=== PATIENT | female | born 1950 | race Caucasian/White ===

== ENCOUNTER 2017-01-31 08:54 | Inpatient (IN) ==
[2017-01-31] MEDS ORDERED: Ondansetron 4 MG/2 ML VIAL IVP ONE (09:28)
[2017-01-31] MEDS ORDERED: *HR* Morphine 2 MG/ML SYRINGE IVP ONE (09:28)
--- NOTE | 2017-01-31 09:31 | Emergency Department Note ---
Disposition Clinical Impression: Hyponatremia Pelvic fracture Qualifiers: Encounter type: initial encounter Pelvic bone location: multiple parts Fracture type: closed Fracture alignment: with stable disruption of pelvic ring Qualified Code(s): S32.810A - Multiple fractures of pelvis with stable disruption of pelvic ring, initial encounter for closed fracture Abrasion of elbow, left Qualifiers: Encounter type: initial encounter Qualified Code(s): S50.312A - Abrasion of left elbow, initial encounter Disposition: Admitted As Inpatient Condition: Good Time of Disposition: 10:26 Lower Extremity Injury HPI - General Chief Complaint: ED Extremity Injury, Lower Stated Complaint: fall, pain to left hip Time Seen by Provider: 01/31/17 09:05 Source: patient Mode of arrival: EMS Limitations: no limitations Nursing Notes Reviewed: Yes Vital Signs Reviewed: Yes - History of Present Illness HPI Narrative: 66-year-old white female presents via life support with left hip pain and unable to weight-bear. She was getting out of her car around midnight last night, she was stepping around a bolder on the side of her driveway and stepped in a hole. She fell down on her left side. She complains of left hip pain. She has an abrasion to her left elbow. She denies any other injuries or fall. Her brother helped her into the house, she was unable to weight-bear. She laid in a chair all night long. She states she was unable to sleep due to the pain. She called EMS this morning. A neighbor put a dressing on her elbow. She denies head injury. Pt Subjective Complaint: hip injury Injury location: Left hip Onset (ago): hour(s) (9) Mechanism of Injury: blunt Context: fall (Fall) Place: home Pain Severity: severe Improves with: immobilization Worsens with: movement, palpation Associated symptoms: Reports: unable to bear weight Treatments prior to arrival: other (Bandage to left elbow) - Related Data Home Medications Medication Instructions Recorded Confirmed Albuterol Sulfate [Proair Hfa] 2 puff IH QID PRN 12/07/15 01/31/17 Alendronate Sodium [Fosamax] 70 mg PO QWEEK 12/07/15 01/31/17 Baclofen [Lioresal] 10 mg PO TID 12/07/15 01/31/17 Calcium Carbonate/Vitamin D2 1 each PO BID 12/07/15 01/31/17 [Oyster Shell Calcium-Vit D Tab] Famotidine [Acid Control] 20 mg PO BID 12/07/15 01/31/17 Ferrous Sulfate 325 mg PO BID 12/07/15 01/31/17 Fluticasone/Salmeterol [Advair 1 each IH BID 12/07/15 01/31/17 250-50 Diskus] Hydrochlorothiazide [Microzide] 12.5 mg PO DAILY 12/07/15 01/31/17 Lisinopril [Zestril] 20 mg PO DAILY 12/07/15 01/31/17 Montelukast [Singulair] 10 mg PO DAILY 12/07/15 01/31/17 TraMADol [Ultram] 50 mg PO TID 12/07/15 01/31/17 Allergies Allergy/AdvReac Type Severity Reaction Status Date / Time No Known Allergies Allergy Verified 01/31/17 08:55 All systems ED: reviewed and negative except as stated. Constitutional: Denies: fever, chills Eyes: Denies: vision change Cardiovascular: Denies: chest pain Respiratory: Reports: dyspnea (Chronically short of breath, no more so than usual. She wears oxygen at night.). Denies: cough Gastrointestinal: Denies: abdominal pain, nausea, vomiting Genitourinary: Denies: urgency, dysuria, frequency Musculoskeletal: Reports: as per HPI (Left hip pain). Denies: back pain, neck pain Integumentary: Reports: as per HPI (Left elbow abrasion), abrasion Neurological: Denies: headache, weakness, numbness, paresthesias Past Medical History - Past Medical History Medical history: Reports: arthritis, COPD, hypertension, osteoporosis, other ( Previous Pelvic Fracture, Ulcer, Colon Cancer) Surgical history: Reports: cancer surgery (Colon) Psychiatric history: Reports: no psych history - Social History Smoking Status: Former smoker Smokeless Tobacco Status: No Alcohol use: Reports: occasionally Drug use: Reports: none Physical Exam - General Limitations: no limitations General appearance: alert, in no apparent distress - Head Head exam: atraumatic, normocephalic - Eye Eye exam: Present: PERRL, EOMI. Absent: scleral icterus, conjunctival injection - ENT ENT exam: normal oropharynx, mucous membranes moist, TM's normal bilaterally - Neck Neck exam: Present: normal inspection, full ROM, trachea midline. Absent: tenderness, lymphadenopathy - Chest Chest inspection: Present: normal inspection, symmetric chest wall rise. Absent : tenderness - Respiratory Respiratory exam: Present: wheezes (Mild bilateral expiratory). Absent: respiratory distress, accessory muscle use, prolonged expiratory phase - Cardiovascular Cardiovascular exam: Present: regular rate, normal rhythm, normal heart sounds - Abdominal Exam Abdominal exam: Present: soft, Non-Tender, normal bowel sounds. Absent: organomegaly, mass - Extremities Exam Extremities exam: Present: tenderness (Tender over the left lateral posterior hip and buttock area. There is no shortening, or rotation of the left lower extremity. She has significant pain on attempts at range of motion of the left hip. She has some pain in the left hip area on rocking of the pelvis. She has intact symmetrical dorsalis pedis and posterior tibial pulses.), normal capillary refill - Back Exam Back exam: Absent: tenderness - Neurological Exam Neurological exam: Present: alert, oriented X3, CN II-XII intact. Absent: normal gait (Unable to weight-bear.), motor sensory deficit - Psychiatric Psychiatric exam: Present: normal affect, normal mood - Skin Skin exam: Present: warm, dry, other (1.5 x 4 cm superficial abrasion over the posterior left elbow. No bony tenderness. Full range of motion of the left elbow without pain.) Course - Reevaluation(s) Reevaluation #1: X-ray results and laboratory results discussed with patient. Treatment plan discussed. She would prefer to stay here for treatment. Dr. Johnson has been paged. Time: 10:15 Reevaluation #2: Dr. Johnson accepts the patient for admission. Time: 10:25 Reevaluation #3: Admitting orders written. Time: 10:35 Vital Signs Temperature 99 F 01/31/17 09:25 Pulse Rate 103 01/31/17 09:25 Respiratory Rate 18 01/31/17 09:25 Blood Pressure 160/93 01/31/17 09:25 O2 Sat by Pulse Oximetry 96 01/31/17 09:25 Temperature 99 F 01/31/17 09:25 Pulse Rate 102 01/31/17 10:30 Respiratory Rate 18 01/31/17 10:30 Blood Pressure 114/61 01/31/17 10:30 O2 Sat by Pulse Oximetry 90 01/31/17 10:30 Oxygen Delivery Oxygen Delivery Room Air Extremity Injury, Lower - MDM Narrative Medical decision making narrative: Differential includes but is not limited to hip fracture, pelvic fracture, hip dislocation, hip strain, inguinal strain, hip and/or buttock contusion. Her x-ray showed ischial and pubic rami fractures that were nondisplaced. I did do a CT of her hip as well, her pain was primarily lateral and posterior hip , not inguinal. I wanted to make sure there was not an associated nondisplaced hip fracture. She was given morphine and Zofran for pain control in the emergency department. Her pain was controlled. Her laboratory results also showed a mild hyponatremia. This is likely related to the hydrochlorothiazide that she currently takes. I did hold the hydrochlorothiazide. I started her on some IV normal saline. After discussing the patient with Dr. Johnson the patient will be admitted for pain control and PT evaluation and treatment. - Lab Data Lab results reviewed: Yes I reviewed the patient's lab results. Result diagrams: 01/31/17 09:41 01/31/17 09:41 Lab Results 01/31/17 01/31/17 01/31/17 Range/Units 09:41 09:41 09:41 WBC 8.5 (4.3-11.1) K/mcL RBC 3.59 L (3.82-4.97) M/mcL Hgb 12.5 (11.5-15.4) g/dL Hct 34.7 L (35.3-44.9) % MCV 96.7 (83.0-100.0) fL MCH 34.8 H (28.0-33.3) pg MCHC 36.0 H (31.6-35.5) g/dL RDW 13.0 (11.5-14.5) % Plt Count 526 H (140-400) K/mcL MPV 8.2 L (9.4-12.4) fL Immature Gran % 0.9 (0-4) % Seg Neutrophils % 67.1 % Lymphocytes % 19.2 % Monocytes % 10.9 % Eosinophils % 1.4 % Basophils % 0.5 % Neutrophils # 5.7 (1.6-8.9) K/mcL Lymphocytes # 1.6 (0.6-4.6) K/mcL Monocytes # 0.9 (0.0-1.3) K/mcL Eosinophils # 0.1 (0.0-0.6) K/mcL Basophils # 0.0 (0.0-0.2) K/mcL PT 11.6 (9.4-12.1) Seconds INR 1.1 Sodium 129 L (136-145) mEq/L Potassium 4.5 (3.5-4.5) mEq/L Chloride 93 L (98-109) mEq/L Carbon Dioxide 23 (19-29) mEq/L BUN 6 L (7-20) mg/dL Creatinine 0.66 (0.57-1.11) mg/dL Est GFR ( Amer) > 60 (> 60) Est GFR (Non-Af Amer) > 60 (> 60) BUN/Creatinine Ratio 9 (6-26) Glucose 102 H (70-99) mg/dL Calculated Osmolality 266 L (280-300) Calcium 8.6 (8.6-10.8) mg/dL - Radiology Data Radiology results reviewed: Yes I reviewed the patient's radiology results. ITS Impressions Hip X-Ray 01/31/17 08:57 IMPRESSION: Acute left superior and inferior pubic rami fractures. D/ / Abilio Pena MD / Abilio Pena MD Interpreting Provider: Abilio Pena MD Hip CT 01/31/17 09:13 IMPRESSION: Comminuted fractures of the superior and inferior left pubic rami. There is a small amount of soft tissue attenuation within the left pelvic retroperitoneum compatible with hemorrhage products. D/ / Alem Campos Cha, MD / Alem Campos Cha, MD Interpreting Provider: Alem Campos Cha, MD
[2017-01-31 09:48] LABS: Basophils % 0.5 %; Eosinophils # 0.1 K/mcL (0.0-0.6); Eosinophils % 1.4 %; Hematocrit 34.7 % (35.3-44.9); Hemoglobin 12.5 g/dL (11.5-15.4); Immature Granulocytes % 0.9 % (0-4); Lymphocytes # 1.6 K/mcL (0.6-4.6); Lymphocytes % 19.2 %; Mean Corpuscular Hemoglobin 34.8 pg (28.0-33.3); Mean Corpuscular Volume 96.7 fL (83.0-100.0); Mean Platelet Volume 8.2 fL (9.4-12.4); Monocytes # 0.9 K/mcL (0.0-1.3); Monocytes % 10.9 %; Neutrophils # 5.7 K/mcL (1.6-8.9); Platelet Count 526 K/mcL (140-400); Red Blood Count 3.59 M/mcL (3.82-4.97); Segmented Neutrophils % 67.1 %
[2017-01-31 09:55] LABS: INR 1.1; Prothrombin Time 11.6 Seconds (9.4-12.1)
[2017-01-31 10:03] LABS: BUN/Creatinine Ratio 9 (6-26); Blood Urea Nitrogen 6 mg/dL (7-20); Calcium 8.6 mg/dL (8.6-10.8); Carbon Dioxide 23 mEq/L (19-29); Chloride 93 mEq/L (98-109); Glucose 102 mg/dL (70-99); Osmolality,Calculated 266 (280-300); Potassium 4.5 mEq/L (3.5-4.5); Sodium 129 mEq/L (136-145); eGFR For African Americans > 60 (> 60); eGFR For Non-African Americans > 60 (> 60)
[2017-01-31] MEDS ORDERED: NON-FORMULARY MEDICATION 1 EACH EACH (Alendronate Sodium [Fosamax] 70 MG) PO SCH (10:43)
[2017-01-31] MEDS ORDERED: Naloxone 0.4 MG/ML INJ IVP PRN (10:43)
[2017-01-31] MEDS ORDERED: *HR* Morphine 2 MG/ML SYRINGE IVP PRN (10:43)
[2017-01-31] MEDS: 0.9 % Sodium Chloride 1,000 ML IVC SCH ×2 (11:49→22:15)
[2017-01-31] MEDS ORDERED: *HR* OxyCODONE ER (12 HR) 10 MG TABLET PO STA (12:10)
--- NOTE | 2017-01-31 16:26 | Internal Med History&Physical ---
Date of Encounter: 01/31/17 Time of Encounter: 16:00 Assessment and Plan (1) Pelvic fracture Current visit: Yes Status: Acute She has been admitted to [facility]. Physical therapy and occupational therapy evaluations will be done. Vitamin D level be checked in a.m. Analgesics will be given on a scheduled and prn basis. Qualifiers: Encounter type: initial encounter Pelvic bone location: multiple parts Fracture type: closed Fracture alignment: with stable disruption of pelvic ring Qualified Code(s): S32.810A - Multiple fractures of pelvis with stable disruption of pelvic ring, initial encounter for closed fracture (2) Hypertension Current visit: Yes Status: Chronic Continue Zestril and hydrochlorothiazide. We will monitor blood pressures. Qualifiers: Hypertension type: essential hypertension Qualified Code(s): I10 - Essential (primary) hypertension (3) COPD (chronic obstructive pulmonary disease) Current visit: No Status: Acute Continue Symbicort, Singulair, and nebulizers as needed. Qualifiers: COPD type: COPD with acute exacerbation Qualified Code(s): J44.1 - Chronic obstructive pulmonary disease with (acute) exacerbation (4) Hyponatremia Current visit: No Status: Acute Suspect due to hydrochlorothiazide use. Will hold HCTZ and monitor labs. Internal Medicine - H&P: HPI Chief complaint: Fall with pelvic fracture Admitted From: Home Plans for Post Hospital Care: Home History of present illness: Ms. Ruvalcaba is a 66 year old female who states she had a fall walking from her car to her house last evening. She was unable to get off the ground by herself but was assisted by family members into the house. She had significant left sided hip/pelvis pain. She did not sleep through the night because of the pain. She came to emergency room this morning and was found to have left inferior and superior pelvic ramus fractures. She was admitted to [facility] for ongoing care needs. She states her fall was due to tripping over a large rock and her left foot landing in a hole. She denies loss of consciousness or head injury. She sustained abrasion to her left elbow. She had a right pelvic fracture in 2003 after a fall. Her musculoskeletal history is pertinent otherwise for DJD and osteoporosis. She denies other bone joint or muscle disorders. Past Med Surg Social Fam HX - Past Medical History Medical history: arthritis, COPD, hypertension, osteoporosis, other Psychiatric history: no psych history - Past Surgical History Surgical History: cancer surgery, orthopedic, other - Social History Smoking Status: Current every day smoker Packs per day: less than one Smokeless Tobacco Status: No Alcohol use: occasionally Drug use: none Internal Medicine - H&P: Meds Albuterol Sulfate [Proair Hfa] 2 puff IH QID PRN 12/07/15 [History] Alendronate Sodium [Fosamax] 70 mg PO QWEEK 12/07/15 [History] Baclofen [Lioresal] 10 mg PO TID 12/07/15 [History] Calcium Carbonate/Vitamin D2 [Oyster Shell Calcium-Vit D Tab] 1 each PO BID [History] Famotidine [Acid Control] 20 mg PO BID 12/07/15 [History] Ferrous Sulfate 325 mg PO BID 12/07/15 [History] Fluticasone/Salmeterol [Advair 250-50 Diskus] 1 each IH BID 12/07/15 [History] Hydrochlorothiazide [Microzide] 12.5 mg PO DAILY 12/07/15 [History] Lisinopril [Zestril] 20 mg PO DAILY 12/07/15 [History] Montelukast [Singulair] 10 mg PO DAILY 12/07/15 [History] TraMADol [Ultram] 50 mg PO TID 12/07/15 [History] Allergies No Known Allergies Allergy (Verified 01/31/17 08:55) All Systems PM: A 10-system review of systems was performed and is negative for pertinent findings except as documented above in the HPI. Review of systems: Gen.: Her weight has decreased from 59.058 kg at the November 2015 hospitalization to 56.69 kg at present. Cardiovascular: She has history of hypertension but denies [place] heart failure angina DVT or pulmonary embolus. Respiratory: She smoked from age [age] up to 2 packs per day. She has a diagnosis COPD and requires oxygen at bedtime and when necessary during the daytime. GI: She has GERD but denies disorders of her liver or exocrine pancreas. She had cholecystectomy in the past. She has had colon polyps as well as gastric polyps : She had an adrenal adenoma (?) that was followed for several years without change in size. She denies other kidney or bladder disorders. Neurologic: She denies large distribution strokes or seizures. Endocrine: She denies diabetes thyroid disease or hyperlipidemia Hematology/oncology: She had colon cancer with partial colectomy approximately 2012 which was curative. Denies other internal malignancies or blood disorders Psychiatric: She denies anxiety depression or other mental health issues Musk skeletal: She has DJD and osteoporosis. Denies other bone joint or muscle disorders. - Constitutional Vitals: Temp Pulse Resp BP Pulse Ox 98.5 F 85 14 108/67 95 01/31/17 11:35 01/31/17 11:35 01/31/17 11:35 01/31/17 11:35 01/31/17 11:35 Exam: Gen.: She is a well-developed well-nourished female who appears in significant pain on movement HEENT: Head is atraumatic and normocephalic. Eyes: EOMI. There is no scleral icterus. Mouth: Mucosa is moist. Neck: Supple and nontender. There is no thyromegaly or adenopathy noted. Heart: Regular without murmurs gallops or ectopics. Lungs: No wheezes or crackles are heard. Abdomen: Soft and nontender. No masses or guarding are noted. Extremities: The left arm has Cob[place] and over much of the midportion. There is no cyanosis edema or clubbing noted of her feet. Dorsalis pedis and posttibial pulses are 1-2 over 2 bilaterally. Neurologic: Mental status: She is talkative and a good historian. Cranial nerves: Smile is symmetric. Forehead wrinkles bilaterally. Tongue protrudes midline. EOMI. Motor: There is no pronator drift. Cerebellar: Finger to nose is intact bilaterally. Skin: Warm and dry Internal Med - H&P Results - Labs CBC & Chem 7: 01/31/17 09:41 01/31/17 09:41
[2017-01-31] MEDS: *HR* Morphine 2 MG/ML SYRINGE IVP PRN ×2 (17:21→22:19)
[2017-01-31] MEDS: Baclofen 10 MG TABLET PO SCH ×2 (17:21→22:15)
[2017-01-31] MEDS: *HR* OxyCODONE ER (12 HR) 10 MG TABLET PO SCH (18:40)
[2017-01-31] MEDS: Budesonide/Formoterol 80/4.5 MDI IH SCH (21:30)
[2017-01-31] MEDS: Famotidine 20 MG TABLET PO SCH (22:14)
[2017-01-31] MEDS: CALCIUM CARBONATE PO SCH (22:15)
[2017-01-31] MEDS: VITAMIN D2 PO SCH (22:15)
[2017-01-31] MEDS ORDERED: Nitroglycerin 0.4 MG TAB.SUBL SL ONE (23:55)
[2017-01-31] MEDS: Nitroglycerin 0.4 MG TAB.SUBL SL PRN (23:58)
[2017-02-01] MEDS: Nitroglycerin 0.4 MG TAB.SUBL SL PRN (00:05)
[2017-02-01] MEDS ORDERED: GI Cocktail 40 ML EACH PO ONE (00:16)
[2017-02-01] MEDS: *HR* Morphine 2 MG/ML SYRINGE IVP PRN ×6 (00:29→22:30)
[2017-02-01] MEDS: *HR* OxyCODONE ER (12 HR) 10 MG TABLET PO SCH ×2 (05:15→18:43)
[2017-02-01] MEDS: *HR* Enoxaparin 40 MG/0.4 ML SYRINGE SQ SCH (05:15)
[2017-02-01 06:05] LABS: Basophils # 0.1 K/mcL (0.0-0.2); Basophils % 0.5 %; Eosinophils # 0.1 K/mcL (0.0-0.6); Eosinophils % 0.8 %; Hematocrit 31.3 % (35.3-44.9); Hemoglobin 10.7 g/dL (11.5-15.4); Immature Granulocytes % 0.4 % (0-4); Lymphocytes # 1.7 K/mcL (0.6-4.6); Lymphocytes % 16.7 %; Mean Corpuscular HGB Conc 34.2 g/dL (31.6-35.5); Mean Corpuscular Hemoglobin 34.4 pg (28.0-33.3); Mean Corpuscular Volume 100.6 fL (83.0-100.0); Mean Platelet Volume 8.8 fL (9.4-12.4); Monocytes # 1.4 K/mcL (0.0-1.3); Monocytes % 13.3 %; Platelet Count 482 K/mcL (140-400); Red Blood Count 3.11 M/mcL (3.82-4.97); Red Cell Distribution Width 13.5 % (11.5-14.5); Segmented Neutrophils % 68.3 %
[2017-02-01] MEDS ORDERED: Lisinopril 20 MG TABLET PO SCH (09:00)
[2017-02-01] MEDS: Baclofen 10 MG TABLET PO SCH ×3 (09:57→22:29)
[2017-02-01] MEDS: Famotidine 20 MG TABLET PO SCH ×2 (09:59→22:28)
[2017-02-01] MEDS: CALCIUM CARBONATE PO SCH ×2 (10:00→22:30)
[2017-02-01] MEDS: VITAMIN D2 PO SCH ×2 (10:00→22:30)
[2017-02-01] MEDS: Budesonide/Formoterol 80/4.5 MDI IH SCH ×2 (10:54→21:33)
[2017-02-01] MEDS ORDERED: *HR* Morphine 2 MG/ML SYRINGE IVP ONE (11:35)
--- NOTE | 2017-02-01 12:08 | Internal Med Progress Note ---
Date of Encounter: 02/01/17 Time of Encounter: 12:05 - Assessment and plan (1) Pelvic fracture Current Visit: Yes Status: Acute Assessment and plan: February 01. Continue OxyContin and prn morphine and Ultram. Qualifiers: Encounter type: initial encounter Pelvic bone location: multiple parts Fracture type: closed Fracture alignment: with stable disruption of pelvic ring Qualified Code(s): S32.810A - Multiple fractures of pelvis with stable disruption of pelvic ring, initial encounter for closed fracture (2) Hypertension Current Visit: Yes Status: Chronic Assessment and plan: February 01. Continue Zestril. Remain off HCTZ. Qualifiers: Hypertension type: essential hypertension Qualified Code(s): I10 - Essential (primary) hypertension (3) COPD (chronic obstructive pulmonary disease) Current Visit: No Status: Acute Assessment and plan: February 01. Continue Symbicort, Singulair, and prn albuterol nebulizers. Qualifiers: COPD type: COPD with acute exacerbation Qualified Code(s): J44.1 - Chronic obstructive pulmonary disease with (acute) exacerbation (4) Hyponatremia Current Visit: No Status: Acute Assessment and plan: February 01. Remain off HCTZ. Recheck labs in a.m. (5) Anemia Current Visit: Yes Status: Acute Assessment and plan: February 01. Hemoglobin has decreased to 10.7 from 12.5 yesterday. We will order anemia testing in a.m. Qualifiers: Anemia type: unspecified type Qualified Code(s): D64.9 - Anemia, unspecified (6) Pleural effusion, right Current Visit: Yes Status: Acute Assessment and plan: February 01. Questionable seen on chest x-ray done earlier today. We will order chest CT to further evaluate - Subjective Interval history: She complained of discomfort in her right chest area during the night. She was given nitroglycerin without relief. GI cocktail was also given. She states it is worse on inspiration. She has had it previously when she has had bronchitis. States her pelvic pain has improved with present medication regimen. - Constitutional Vitals: Temp Pulse Resp BP Pulse Ox 98.8 F 95 18 124/63 90 02/01/17 07:33 02/01/17 09:13 02/01/17 10:57 02/01/17 09:13 02/01/17 10:57 Exam: She appears in minimal discomfort at present. Her lungs show some diminished breath sounds in the right base. Heart is regular without murmurs gallops or ectopics. Extremities show no pitting edema. Reviewed her medications and lab results. Internal Medicine: Result - Labs CBC & Chem 7: 02/01/17 04:43 01/31/17 09:41 Labs: Short CBC 02/01/17 Range/Units 04:43 WBC 10.2 (4.3-11.1) K/mcL Hgb 10.7 L D (11.5-15.4) g/dL Hct 31.3 L (35.3-44.9) % Plt Count 482 H (140-400) K/mcL Neutrophils # 7.0 (1.6-8.9) K/mcL Cardiac Enzymes 02/01/17 Range/Units 09:24 Troponin I 0.02 (0-0.03) ng/mL - ABG Interpretation ABG results: PT/INR, D-dimer PT 11.6 Seconds (9.4-12.1) 01/31/17 09:41 - Impressions Impressions Chest X-Ray 02/01/17 09:08 IMPRESSION: Right basilar airspace disease and suspected pleural effusion, most compatible with pneumonia. Follow-up to resolution is recommended. D/ / Alem Campos Cha, MD / Alem Campos Cha, MD Interpreting Provider: Alem Campos Cha, MD - VTE Documentation of Mechanical Device: Graduated compression elastic hosiery Consult Discharge Plan - Plan Referrals: Xavier Rivera CNP [Primary Care Provider] - 1 week
[2017-02-01] MEDS: Azithromycin 500 MG in D5% in Water 250 ML IVPB SCH (16:26)
[2017-02-01] MEDS: 0.9 % Sodium Chloride 1,000 ML IVC SCH (18:35)
[2017-02-01] MEDS: CefTRIAXone 1,000 MG in D5% in Water (Mini-Bag+) 100 ML IVPB SCH (18:43)
[2017-02-02] MEDS: *HR* OxyCODONE ER (12 HR) 10 MG TABLET PO SCH ×2 (05:52→17:19)
[2017-02-02] MEDS: *HR* Enoxaparin 40 MG/0.4 ML SYRINGE SQ SCH (05:53)
[2017-02-02] MEDS: Ondansetron ODT 4 MG TAB.RAPDIS SL PRN ×3 (06:03→20:15)
[2017-02-02 06:44] LABS: Basophils # 0.1 K/mcL (0.0-0.2); Basophils % 0.4 %; Eosinophils # 0.1 K/mcL (0.0-0.6); Eosinophils % 0.5 %; Hematocrit 31.6 % (35.3-44.9); Hemoglobin 10.7 g/dL (11.5-15.4); Immature Granulocytes % 0.5 % (0-4); Lymphocytes # 2.5 K/mcL (0.6-4.6); Lymphocytes % 14.3 %; Mean Corpuscular HGB Conc 33.9 g/dL (31.6-35.5); Mean Corpuscular Hemoglobin 34.4 pg (28.0-33.3); Mean Corpuscular Volume 101.6 fL (83.0-100.0); Mean Platelet Volume 8.4 fL (9.4-12.4); Monocytes # 1.9 K/mcL (0.0-1.3); Monocytes % 10.8 %; Platelet Count 464 K/mcL (140-400); Red Blood Count 3.11 M/mcL (3.82-4.97); Red Cell Distribution Width 13.4 % (11.5-14.5); Segmented Neutrophils % 73.5 %
[2017-02-02 07:07] LABS: Alanine Aminotransferase 15 Units/L (0-55); Albumin 2.7 g/dL (3.5-5.0); Albumin/Globulin Ratio 0.9 (1.1-2.2); Alkaline Phosphatase 68 Units/L (38-126); Aspartate Amino Transferase 32 Units/L (5-34); BUN/Creatinine Ratio 14 (6-26); Bilirubin,Total 0.6 mg/dL (0.2-1.2); Blood Urea Nitrogen 10 mg/dL (7-20); Calcium 8.2 mg/dL (8.6-10.8); Carbon Dioxide 22 mEq/L (19-29); Chloride 98 mEq/L (98-109); Globulin 2.9 g/dL (2.4-3.5); Glucose 116 mg/dL (70-99); Osmolality,Calculated 270 (280-300); Potassium 4.2 mEq/L (3.5-4.5); Sodium 130 mEq/L (136-145); Total Protein 5.6 g/dL (6.0-8.3); eGFR For African Americans > 60 (> 60); eGFR For Non-African Americans > 60 (> 60)
[2017-02-02 09:49] LABS: % Iron Saturation 7 % (15-50); Iron 16 mcg/dL (50-170); Transferrin 153 mg/dL (180-382)
[2017-02-02 10:28] LABS: Ferritin 169 ng/ml (5-204)
[2017-02-02 10:42] LABS: Folate 14.7 ng/mL (7.0-31.4)
[2017-02-02] MEDS: *HR* Morphine 2 MG/ML SYRINGE IVP PRN ×3 (10:44→20:09)
[2017-02-02] MEDS: Baclofen 10 MG TABLET PO SCH ×3 (10:48→20:09)
[2017-02-02] MEDS: Famotidine 20 MG TABLET PO SCH ×2 (10:48→20:09)
[2017-02-02] MEDS: VITAMIN D2 PO SCH ×2 (10:52→20:15)
[2017-02-02] MEDS: CALCIUM CARBONATE PO SCH ×2 (10:52→20:15)
[2017-02-02] MEDS: CefTRIAXone 1,000 MG in D5% in Water (Mini-Bag+) 100 ML IVPB SCH (10:53)
[2017-02-02] MEDS: Lisinopril 20 MG TABLET PO SCH ×2 (10:54→18:43)
[2017-02-02] MEDS: Ipratropium/Albuterol Neb 3 ML IH PRN ×2 (11:50→21:11)
[2017-02-02] MEDS: Budesonide/Formoterol 80/4.5 MDI IH SCH (11:50)
--- NOTE | 2017-02-02 15:55 | Internal Med Progress Note ---
Date of Encounter: 02/02/17 Time of Encounter: 15:45 - Assessment and plan (1) Pelvic fracture Current Visit: Yes Status: Acute Assessment and plan: February 01. Continue OxyContin and prn morphine and Ultram. February 02. Will increase oxycodone and continue other medicines as ordered. Qualifiers: Encounter type: initial encounter Pelvic bone location: multiple parts Fracture type: closed Fracture alignment: with stable disruption of pelvic ring Qualified Code(s): S32.810A - Multiple fractures of pelvis with stable disruption of pelvic ring, initial encounter for closed fracture (2) Hypertension Current Visit: Yes Status: Chronic Assessment and plan: February 01. Continue Zestril. Remain off HCTZ. February 02. Continue Zestril. Qualifiers: Hypertension type: essential hypertension Qualified Code(s): I10 - Essential (primary) hypertension (3) COPD (chronic obstructive pulmonary disease) Current Visit: No Status: Acute Assessment and plan: February 01. Continue Symbicort, Singulair, and prn albuterol nebulizers. Qualifiers: COPD type: COPD with acute exacerbation Qualified Code(s): J44.1 - Chronic obstructive pulmonary disease with (acute) exacerbation (4) Hyponatremia Current Visit: No Status: Acute Assessment and plan: February 01. Remain off HCTZ. Recheck labs in a.m. February 02. Remain off HCTZ. Sodium has improved to 130. Recheck labs in a.m. (5) Anemia Current Visit: Yes Status: Acute Assessment and plan: February 01. Hemoglobin has decreased to 10.7 from 12.5 yesterday. We will order anemia testing in a.m. February 02. Anemia testing showed iron 16, transferrin saturation 7%, ferritin 169, B12 526, and folate 14.7. We will order ferrous sulfate with vitamin C. Qualifiers: Anemia type: unspecified type Qualified Code(s): D64.9 - Anemia, unspecified (6) Pleural effusion, right Current Visit: Yes Status: Acute Assessment and plan: February 01. Questionable seen on chest x-ray done earlier today. We will order chest CT to further evaluate February 02. Chest CT showed right lower lobe pneumonia with minimal pleural effusion. We will continue with Rocephin and Zithromax and add lactobacillus. Recheck labs in a.m. - Subjective Interval history: February 01. She complained of discomfort in her right chest area during the night. She was given nitroglycerin without relief. GI cocktail was also given. She states it is worse on inspiration. She has had it previously when she has had bronchitis. States her pelvic pain has improved with present medication regimen. February 02. She has a cough occasionally productive of yellow sputum. She still has significant pain on movement. - Constitutional Vitals: Temp Pulse Resp BP Pulse Ox 98.2 F 81 18 134/74 95 02/02/17 15:00 02/02/17 15:00 02/02/17 15:00 02/02/17 15:00 02/02/17 15:00 Exam: She is resting comfortably in bed. Her affect is cheerful. Her speech is appropriate. I reviewed her medications and lab results. Internal Medicine: Result - Labs CBC & Chem 7: 02/02/17 06:33 02/02/17 06:33 Labs: Short CBC 02/02/17 Range/Units 06:33 WBC 17.7 H D (4.3-11.1) K/mcL Hgb 10.7 L (11.5-15.4) g/dL Hct 31.6 L (35.3-44.9) % Plt Count 464 H (140-400) K/mcL Neutrophils # 13.0 H (1.6-8.9) K/mcL BMP 02/02/17 06:33 Sodium 130 L Potassium 4.2 Chloride 98 Carbon Dioxide 22 BUN 10 Creatinine 0.69 Glucose 116 H Calcium 8.2 L Liver Function 02/02/17 Range/Units 06:33 Total Bilirubin 0.6 (0.2-1.2) mg/dL AST 32 (5-34) Units/L ALT 15 (0-55) Units/L Alkaline Phosphatase 68 (38-126) Units/L Albumin 2.7 L (3.5-5.0) g/dL - ABG Interpretation ABG results: PT/INR, D-dimer PT 11.6 Seconds (9.4-12.1) 01/31/17 09:41 - VTE Documentation of Mechanical Device: Graduated compression elastic hosiery Consult Discharge Plan - Plan Referrals: Xavier Rivera CNP [Primary Care Provider] - 1 week
[2017-02-02] MEDS: Azithromycin 500 MG in D5% in Water 250 ML IVPB SCH (16:13)
[2017-02-02] MEDS: Lactobacillus 1 EACH CAP.SPRINK PO SCH (20:08)
--- NOTE | 2017-02-02 21:30 | Electrocardiograph Report ---
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
[2017-02-03] MEDS: Budesonide/Formoterol 80/4.5 MDI IH SCH ×2 (00:55→11:18)
[2017-02-03] MEDS: *HR* Morphine 2 MG/ML SYRINGE IVP PRN ×3 (03:23→08:26)
[2017-02-03] MEDS: *HR* Enoxaparin 40 MG/0.4 ML SYRINGE SQ SCH (05:28)
[2017-02-03] MEDS: *HR* OxyCODONE ER (12 HR) 10 MG TABLET PO SCH (05:31)
[2017-02-03] MEDS: Ondansetron ODT 4 MG TAB.RAPDIS SL PRN ×2 (05:38→12:01)
[2017-02-03 06:00] LABS: Basophils % 0.3 %; Eosinophils # 0.2 K/mcL (0.0-0.6); Eosinophils % 1.4 %; Hematocrit 29.5 % (35.3-44.9); Hemoglobin 10.1 g/dL (11.5-15.4); Immature Granulocytes % 0.6 % (0-4); Lymphocytes # 1.8 K/mcL (0.6-4.6); Lymphocytes % 12.5 %; Mean Corpuscular HGB Conc 34.2 g/dL (31.6-35.5); Mean Corpuscular Hemoglobin 34.8 pg (28.0-33.3); Mean Corpuscular Volume 101.7 fL (83.0-100.0); Mean Platelet Volume 8.7 fL (9.4-12.4); Monocytes # 1.9 K/mcL (0.0-1.3); Monocytes % 13.2 %; Platelet Count 477 K/mcL (140-400); Red Cell Distribution Width 13.2 % (11.5-14.5)
[2017-02-03 06:03] LABS: Neutrophils # 10.2 K/mcL (1.6-8.9)
--- NOTE | 2017-02-03 06:10 | Electrocardiograph Report ---
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
[2017-02-03 06:19] LABS: BUN/Creatinine Ratio 14 (6-26); Blood Urea Nitrogen 9 mg/dL (7-20); Calcium 8.3 mg/dL (8.6-10.8); Carbon Dioxide 25 mEq/L (19-29); Chloride 95 mEq/L (98-109); Glucose 100 mg/dL (70-99); Osmolality,Calculated 267 (280-300); Potassium 4.4 mEq/L (3.5-4.5); Sodium 129 mEq/L (136-145); eGFR For African Americans > 60 (> 60); eGFR For Non-African Americans > 60 (> 60)
[2017-02-03] MEDS ORDERED: Ascorbic Acid 500 MG TABLET PO SCH ×2 (06:30)
[2017-02-03] MEDS: Famotidine 20 MG TABLET PO SCH (08:27)
[2017-02-03] MEDS: CefTRIAXone 1,000 MG in D5% in Water (Mini-Bag+) 100 ML IVPB SCH (08:27)
[2017-02-03] MEDS: Lactobacillus 1 EACH CAP.SPRINK PO SCH (08:28)
[2017-02-03] MEDS: CALCIUM CARBONATE PO SCH (08:28)
[2017-02-03] MEDS: VITAMIN D2 PO SCH (08:28)
[2017-02-03] MEDS: Baclofen 10 MG TABLET PO SCH (08:28)
[2017-02-03] MEDS: Lisinopril 20 MG TABLET PO SCH (08:28)
[2017-02-03 11:13] VITALS: BP 94/59
[2017-02-03] MEDS: Ipratropium/Albuterol Neb 3 ML IH PRN (11:18)
--- NOTE | 2017-02-03 12:37 | Discharge Summary ---
Date of Encounter: 02/03/17 Time of Encounter: 10:00 - Discharge Diagnosis (1) Pelvic fracture Priority: Primary Status: Acute Qualifiers: Encounter type: initial encounter Pelvic bone location: multiple parts Fracture type: closed Fracture alignment: with stable disruption of pelvic ring Qualified Code(s): S32.810A - Multiple fractures of pelvis with stable disruption of pelvic ring, initial encounter for closed fracture (2) Hypertension Priority: Secondary Status: Chronic Qualifiers: Hypertension type: essential hypertension Qualified Code(s): I10 - Essential (primary) hypertension (3) COPD (chronic obstructive pulmonary disease) Priority: Secondary Status: Acute Qualifiers: COPD type: COPD with acute exacerbation Qualified Code(s): J44.1 - Chronic obstructive pulmonary disease with (acute) exacerbation (4) Hyponatremia Priority: Secondary Status: Acute (5) Anemia Priority: Secondary Status: Acute Qualifiers: Anemia type: unspecified type Qualified Code(s): D64.9 - Anemia, unspecified (6) Pneumonia Priority: Secondary Status: Acute Qualifiers: Pneumonia type: due to unspecified organism Laterality: right Lung location: lower lobe of lung Qualified Code(s): J18.1 - Lobar pneumonia, unspecified organism - Discharge Medications Home Medications: Albuterol Sulfate [Proair Hfa] 2 puff IH QID PRN 12/07/15 [History] Alendronate Sodium [Fosamax] 70 mg PO QWEEK 12/07/15 [History] Baclofen [Lioresal] 10 mg PO TID 12/07/15 [History] Calcium Carbonate/Vitamin D2 [Oyster Shell Calcium-Vit D Tab] 1 each PO BID [History] Famotidine [Acid Control] 20 mg PO BID 12/07/15 [History] Fluticasone/Salmeterol [Advair 250-50 Diskus] 1 each IH BID 12/07/15 [History] Montelukast [Singulair] 10 mg PO DAILY 12/07/15 [History] TraMADol [Ultram] 50 mg PO TID 12/07/15 [History] Ascorbic Acid [Vitamin C] 500 mg PO DAILY@0630 tablet 02/03/17 [Rx] Azithromycin [Zithromax] 500 mg IVPB Q24H vial 02/03/17 [Rx] Budesonide/Formoterol 80/4.5 [Symbicort 80/4.5] 1 puff IH BIDR inhaler [Rx] CefTRIAXone [Rocephin] 1,000 mg IVPB DAILY vial 02/03/17 [Rx] Enoxaparin [Lovenox] 40 mg SQ 0600 syringe 02/03/17 [Rx] Ferrous Sulfate 325 mg PO DAILY@0630 tablet 02/03/17 [Rx] GuaiFENesin/Dextromethorphan [Robitussin/Dm] 10 ml PO Q6HR udc 02/03/17 [Rx] Lactobacillus [Culturelle] 1 each PO BID cap.sprink 02/03/17 [Rx] Lisinopril [Zestril] 10 mg PO DAILY tablet 02/03/17 [Rx] Metoprolol [Lopressor] 12.5 mg PO BID tablet 02/03/17 [Rx] Morphine [Morphine Sulfate] 2 mg IVP Q2H PRN #0 syringe 02/03/17 [Rx] Ondansetron ODT [Zofran ODT] 4 mg SL Q4H PRN #0 tab.rapdis 02/03/17 [Rx] OxyCODONE ER (12 HR) [OxyCONTIN] 30 mg PO Q12HR tab.er.12h 02/03/17 [Rx] Allergies/Adverse Reactions: Allergies No Known Allergies Allergy (Verified 01/31/17 08:55) Procedures/tests Complete & Pending: Procedures Performed prior 72 hours Category Date Time Status CT chest wo con [CT] Routine Cat Scan 02/01/17 11:26 Completed EKG [ECG 12 lead ECG] [ECG] Routine Y 02/01/17 09:07 Completed EKG [ECG 12 lead ECG] [ECG] Stat Y 02/01/17 00:00 Completed Date of admission: 01/31/17 11:06 Primary care physician: Cherie Sage Consults: 01/31/17 16:40 Consult to Occupational Therapy [CONS] Routine Comment: Evaluate, develop and implement POC Consult to Physical Therapy [CONS] Routine Comment: Evaluate, develop and implement POC - Patient Status Disposition: Transfer Hospital Swing Bed Condition: Good Overall status at discharge: patient is progressing back to baseline - Discharge Instructions - Diet and Activity Activity: as per physical therapy Diet: advance to your usual diet Hospital course: Ms. Ruvalcaba is a 67 year old female who states she had a fall walking from her car to her house last evening. She was unable to get off the ground by herself but was assisted by family members into the house. She had significant left sided hip/pelvis pain. She did not sleep through the night because of the pain. She came to emergency room this morning and was found to have left inferior and superior pelvic ramus fractures. She was admitted to [facility] for ongoing care needs. Initial orders were written by the emergency room physician. I saw her on January 31 and performed the history and physical. She was given scheduled and prn analgesics. Physical therapy and occupational therapy evaluations with ongoing interventions were done. She made satisfactory progress but it was felt she would benefit from swing bed stay for ongoing interventions. HCTZ was discontinued because of hyponatremia. Lisinopril was continued. She was also ordered metoprolol and her blood pressure was satisfactory. She complained of right chest discomfort. EKG and cardiac enzymes were unremarkable. A chest CT showed right lower lobe infiltrate with minimal effusion. She was placed on Rocephin and Zithromax with lactobacillus and these will be continued in swing bed. Anemia testing showed iron 16, transferrin saturation 7%, ferritin 169, B12 526, and folate 14.7. She was ordered ferrous sulfate with vitamin C. On February 03 arrangements were completed for her to be discharged to swing bed for ongoing therapy interventions. - Time Spent with Patient Total time spent providing and/or coordinating discharge services: - Constitutional Vitals: Temp Pulse Resp BP Pulse Ox 98.4 F 72 17 94/59 93 02/03/17 11:06 02/03/17 11:06 02/03/17 11:06 02/03/17 11:06 02/03/17 11:06 - VTE Documentation of Mechanical Device: Graduated compression elastic hosiery
== END 2017-02-03 14:09 | disposition other institution (70) | DRG 535 ==
LOC: EMEROOPIK 08:54 → INPPIK 08:54
PROVIDERS: ADMIT Internal Medicine; ATTEND Internal Medicine

== ENCOUNTER 2017-02-03 12:27 | Inpatient (IN) ==
[2017-02-03] MEDS ORDERED: (Alendronate Sodium [Fosamax] 70 MG) PO SCH (14:45)
[2017-02-03] MEDS ORDERED: Azithromycin 500 MG VIAL IVPB SCH (15:00)
[2017-02-03] MEDS: Azithromycin 500 MG in D5% in Water 250 ML IVPB SCH (16:10)
[2017-02-03] MEDS: Baclofen 10 MG TABLET PO SCH ×2 (16:14→20:37)
[2017-02-03] MEDS: *HR* OxyCODONE ER (12 HR) 10 MG TABLET PO SCH (18:45)
[2017-02-03] MEDS: *HR* Morphine 2 MG/ML SYRINGE IVP PRN (20:38)
[2017-02-03] MEDS: Lactobacillus 1 EACH CAP.SPRINK PO SCH (20:38)
[2017-02-03] MEDS: Famotidine 20 MG TABLET PO SCH (20:41)
[2017-02-03] MEDS ORDERED: CALCIUM CARBONATE PO SCH (21:00)
[2017-02-03] MEDS ORDERED: VITAMIN D2 PO SCH (21:00)
[2017-02-03] MEDS: Budesonide/Formoterol 80/4.5 MDI IH SCH ×2 (22:11)
[2017-02-04 05:59] LABS: Basophils # 0.1 K/mcL (0.0-0.2); Basophils % 0.4 %; Eosinophils # 0.3 K/mcL (0.0-0.6); Eosinophils % 2.6 %; Hematocrit 28.3 % (35.3-44.9); Hemoglobin 9.7 g/dL (11.5-15.4); Immature Granulocytes % 0.3 % (0-4); Lymphocytes # 1.3 K/mcL (0.6-4.6); Lymphocytes % 11.1 %; Mean Corpuscular HGB Conc 34.3 g/dL (31.6-35.5); Mean Corpuscular Hemoglobin 34.6 pg (28.0-33.3); Mean Corpuscular Volume 101.1 fL (83.0-100.0); Mean Platelet Volume 8.7 fL (9.4-12.4); Monocytes # 1.6 K/mcL (0.0-1.3); Monocytes % 14.1 %; Neutrophils # 8.3 K/mcL (1.6-8.9); Platelet Count 495 K/mcL (140-400); Red Cell Distribution Width 13.2 % (11.5-14.5); Segmented Neutrophils % 71.5 %
[2017-02-04 06:10] LABS: INR 1.1; Prothrombin Time 12.4 Seconds (9.4-12.1)
[2017-02-04 06:13] LABS: Activated Partial Thrombo Time 26.3 Seconds (26.0-36.0)
[2017-02-04 06:16] LABS: eGFR For African Americans > 60 (> 60); eGFR For Non-African Americans > 60 (> 60)
[2017-02-04] MEDS: *HR* Enoxaparin 40 MG/0.4 ML SYRINGE SQ SCH (06:41)
[2017-02-04] MEDS: Ascorbic Acid 500 MG TABLET PO SCH (06:42)
[2017-02-04] MEDS: *HR* OxyCODONE ER (12 HR) 10 MG TABLET PO SCH ×2 (06:42→18:20)
[2017-02-04] MEDS: Ondansetron ODT 4 MG TAB.RAPDIS SL PRN (07:50)
[2017-02-04] MEDS: *HR* Morphine 2 MG/ML SYRINGE IVP PRN (07:58)
[2017-02-04] MEDS: Famotidine 20 MG TABLET PO SCH ×2 (08:36→20:19)
[2017-02-04] MEDS: Lactobacillus 1 EACH CAP.SPRINK PO SCH ×2 (08:36→20:19)
[2017-02-04] MEDS: Lisinopril 20 MG TABLET PO SCH (08:37)
[2017-02-04] MEDS: Baclofen 10 MG TABLET PO SCH ×3 (08:37→20:19)
[2017-02-04] MEDS: CefTRIAXone 1,000 MG in D5% in Water (Mini-Bag+) 100 ML IVPB SCH (08:37)
[2017-02-04] MEDS ORDERED: CefTRIAXone 1,000 MG VIAL IVPB SCH (09:00)
[2017-02-04] MEDS: Budesonide/Formoterol 80/4.5 MDI IH SCH ×3 (09:13→22:20)
[2017-02-04] MEDS: Ipratropium/Albuterol Neb 3 ML IH PRN ×2 (13:53→22:20)
--- NOTE | 2017-02-04 14:37 | Internal Med Progress Note ---
Date of Encounter: 02/04/17 Time of Encounter: 14:25 - Assessment and plan (1) Pelvic fracture Current Visit: No Status: Acute Assessment and plan: February 04. Continue scheduled OxyContin and other prn medications Qualifiers: Encounter type: initial encounter Pelvic bone location: multiple parts Fracture type: closed Fracture alignment: with stable disruption of pelvic ring Qualified Code(s): S32.810A - Multiple fractures of pelvis with stable disruption of pelvic ring, initial encounter for closed fracture (2) Hypertension Current Visit: No Status: Chronic Assessment and plan: February 04. Continue Zestril and metoprolol. Qualifiers: Hypertension type: essential hypertension Qualified Code(s): I10 - Essential (primary) hypertension (3) Hyponatremia Current Visit: No Status: Acute Assessment and plan: February 04. Remain off HCTZ and monitor labs. (4) Anemia Current Visit: No Status: Acute Assessment and plan: February 04. Anemia testing showed iron 16, transferrin saturation 7%, ferritin 169 , B12 526, and folate 14.7. Continue ferrous sulfate with vitamin C. Qualifiers: Anemia type: unspecified type Qualified Code(s): D64.9 - Anemia, unspecified (5) Pneumonia Current Visit: No Status: Acute Assessment and plan: February 04. Continue Rocephin, Zithromax, and lactobacillus Qualifiers: Pneumonia type: due to unspecified organism Laterality: right Lung location: lower lobe of lung Qualified Code(s): J18.1 - Lobar pneumonia, unspecified organism - Subjective Interval history: February 04. She was hospitalized in acute care January 31- after presenting with a pelvic fracture. She had therapy intervention and progressed satisfactorily but it was felt she would benefit from swing bed stay for ongoing therapy. Hydrochlorothiazide was held because of hyponatremia. Blood pressure control remains satisfactory. Chest CT showed right lower lobe infiltrate and she was placed on antibiotics which were continued into swing bed. She has no new complaints today except ongoing nausea that is been present since admission to acute care. - Constitutional Vitals: Temp Pulse Resp BP Pulse Ox 99.1 F 92 15 122/70 87 02/03/17 18:54 02/04/17 12:21 02/04/17 09:20 02/04/17 08:42 02/04/17 12:21 Exam: She is resting comfortably in bed appears in no acute distress. Her abdomen is soft and nontender. Heart is regular without murmurs gallops or ectopics. I reviewed her medications and lab results. Internal Medicine: Result - Labs CBC & Chem 7: 02/03/17 04:50 02/03/17 04:50 Labs: Short CBC 02/03/17 Range/Units 04:50 WBC 11.6 H (4.3-11.1) K/mcL Hgb 9.7 L (11.5-15.4) g/dL Hct 28.3 L (35.3-44.9) % Plt Count 495 H (140-400) K/mcL Neutrophils # 8.3 (1.6-8.9) K/mcL BMP 02/03/17 04:50 Creatinine 0.65 - ABG Interpretation ABG results: PT/INR, D-dimer PT 12.4 Seconds (9.4-12.1) H 02/03/17 04:50 - VTE Documentation of Mechanical Device: Graduated compression elastic hosiery Consult Discharge Plan - Plan Referrals: Xavier Rivera CNP [Primary Care Provider] - 1 week
[2017-02-04] MEDS: Azithromycin 500 MG in D5% in Water 250 ML IVPB SCH (15:12)
[2017-02-04] MEDS: MOM Conc 10 ML UD.LIQ PO SCH (21:12)
[2017-02-05] MEDS: *HR* Morphine 2 MG/ML SYRINGE IVP PRN (01:01)
[2017-02-05 05:48] LABS: Basophils % 0.3 %; Eosinophils # 0.2 K/mcL (0.0-0.6); Eosinophils % 2.6 %; Hematocrit 29.3 % (35.3-44.9); Immature Granulocytes % 0.3 % (0-4); Lymphocytes # 1.3 K/mcL (0.6-4.6); Lymphocytes % 13.9 %; Mean Corpuscular HGB Conc 34.1 g/dL (31.6-35.5); Mean Corpuscular Hemoglobin 34.4 pg (28.0-33.3); Mean Corpuscular Volume 100.7 fL (83.0-100.0); Mean Platelet Volume 8.5 fL (9.4-12.4); Monocytes # 1.3 K/mcL (0.0-1.3); Monocytes % 14.5 %; Neutrophils # 6.3 K/mcL (1.6-8.9); Platelet Count 524 K/mcL (140-400); Red Blood Count 2.91 M/mcL (3.82-4.97); Red Cell Distribution Width 13.1 % (11.5-14.5); Segmented Neutrophils % 68.4 %
[2017-02-05] MEDS: *HR* OxyCODONE ER (12 HR) 10 MG TABLET PO SCH ×2 (05:57→17:08)
[2017-02-05] MEDS: *HR* Enoxaparin 40 MG/0.4 ML SYRINGE SQ SCH (05:58)
[2017-02-05] MEDS: Ascorbic Acid 500 MG TABLET PO SCH (05:58)
[2017-02-05 06:14] LABS: BUN/Creatinine Ratio 15 (6-26); Blood Urea Nitrogen 10 mg/dL (7-20); Calcium 8.7 mg/dL (8.6-10.8); Carbon Dioxide 26 mEq/L (19-29); Chloride 93 mEq/L (98-109); Glucose 84 mg/dL (70-99); Osmolality,Calculated 272 (280-300); Sodium 132 mEq/L (136-145); eGFR For African Americans > 60 (> 60); eGFR For Non-African Americans > 60 (> 60)
[2017-02-05] MEDS: Baclofen 10 MG TABLET PO SCH ×3 (09:21→22:00)
[2017-02-05] MEDS: Lactobacillus 1 EACH CAP.SPRINK PO SCH ×2 (09:21→21:59)
[2017-02-05] MEDS: Famotidine 20 MG TABLET PO SCH ×2 (09:21→22:00)
[2017-02-05] MEDS: CefTRIAXone 1,000 MG in D5% in Water (Mini-Bag+) 100 ML IVPB SCH (09:22)
[2017-02-05] MEDS: Ipratropium/Albuterol Neb 3 ML IH PRN ×2 (09:26→21:27)
[2017-02-05] MEDS: Budesonide/Formoterol 80/4.5 MDI IH SCH ×2 (09:27→21:27)
[2017-02-05] MEDS: Lisinopril 20 MG TABLET PO SCH (09:39)
[2017-02-05] MEDS: Azithromycin 500 MG in D5% in Water 250 ML IVPB SCH (15:30)
[2017-02-06] MEDS: Ipratropium/Albuterol Neb 3 ML IH PRN ×2 (06:35→10:13)
[2017-02-06] MEDS: *HR* Enoxaparin 40 MG/0.4 ML SYRINGE SQ SCH (06:56)
[2017-02-06] MEDS: *HR* OxyCODONE ER (12 HR) 10 MG TABLET PO SCH ×2 (06:56→18:38)
[2017-02-06] MEDS: Ascorbic Acid 500 MG TABLET PO SCH (06:57)
[2017-02-06] MEDS: Baclofen 10 MG TABLET PO SCH ×3 (09:04→21:48)
[2017-02-06] MEDS: Lactobacillus 1 EACH CAP.SPRINK PO SCH ×2 (09:04→21:45)
[2017-02-06] MEDS: Famotidine 20 MG TABLET PO SCH ×2 (09:05→21:48)
[2017-02-06] MEDS: Lisinopril 20 MG TABLET PO SCH (09:05)
[2017-02-06] MEDS: *HR* Morphine 2 MG/ML SYRINGE IVP PRN ×4 (09:15→21:50)
[2017-02-06] MEDS: CefTRIAXone 1,000 MG in D5% in Water (Mini-Bag+) 100 ML IVPB SCH (09:38)
[2017-02-06] MEDS: Budesonide/Formoterol 80/4.5 MDI IH SCH ×2 (10:13→22:09)
--- NOTE | 2017-02-06 10:32 | Internal Med Progress Note ---
Date of Encounter: 02/06/17 Time of Encounter: 10:20 - Assessment and plan (1) Pelvic fracture Current Visit: No Status: Acute Assessment and plan: February 04. Continue scheduled OxyContin and other prn medications February 06. Continue analgesics and therapy. Qualifiers: Encounter type: initial encounter Pelvic bone location: multiple parts Fracture type: closed Fracture alignment: with stable disruption of pelvic ring Qualified Code(s): S32.810A - Multiple fractures of pelvis with stable disruption of pelvic ring, initial encounter for closed fracture (2) Hypertension Current Visit: No Status: Chronic Assessment and plan: February 04. Continue Zestril and metoprolol. Qualifiers: Hypertension type: essential hypertension Qualified Code(s): I10 - Essential (primary) hypertension (3) Hyponatremia Current Visit: No Status: Acute Assessment and plan: February 04. Remain off HCTZ and monitor labs. February 06. Improved. Continue present regimen (4) Anemia Current Visit: No Status: Acute Assessment and plan: February 04. Anemia testing showed iron 16, transferrin saturation 7%, ferritin 169 , B12 526, and folate 14.7. Continue ferrous sulfate with vitamin C. February 06. Hemoglobin slightly improved to 10.0 on 02/05/2017. Continue present regimen Qualifiers: Anemia type: unspecified type Qualified Code(s): D64.9 - Anemia, unspecified (5) Pneumonia Current Visit: No Status: Acute Assessment and plan: February 04. Continue Rocephin, Zithromax, and lactobacillus Qualifiers: Pneumonia type: due to unspecified organism Laterality: right Lung location: lower lobe of lung Qualified Code(s): J18.1 - Lobar pneumonia, unspecified organism - Subjective Interval history: February 04. She was hospitalized in acute care January 31- after presenting with a pelvic fracture. She had therapy intervention and progressed satisfactorily but it was felt she would benefit from swing bed stay for ongoing therapy. Hydrochlorothiazide was held because of hyponatremia. Blood pressure control remains satisfactory. Chest CT showed right lower lobe infiltrate and she was placed on antibiotics which were continued into swing bed. She has no new complaints today except ongoing nausea that is been present since admission to acute care. February 06. She has no new complaints. She vocalizes frustration for significant delay in obtaining her requested pain medication earlier today. - Constitutional Vitals: Temp Pulse Resp BP Pulse Ox 98.5 F 90 16 120/70 94 02/06/17 06:34 02/06/17 08:45 02/06/17 08:45 02/06/17 08:45 02/06/17 08:45 Exam: She is resting comfortably in a chair at bedside. She is wearing oxygen by nasal cannula. She does not appear agitated at this time. I reviewed her medications and lab results. Internal Medicine: Result - Labs CBC & Chem 7: 02/05/17 04:54 02/05/17 04:54 - ABG Interpretation ABG results: PT/INR, D-dimer PT 12.4 Seconds (9.4-12.1) H 02/03/17 04:50 - VTE Documentation of Mechanical Device: Graduated compression elastic hosiery Consult Discharge Plan - Plan Referrals: Xavier Rivera, DESIGN DRAFTSMAN [Primary Care Provider] - 1 week
[2017-02-06] MEDS: Azithromycin 500 MG in D5% in Water 250 ML IVPB SCH (15:31)
[2017-02-06] MEDS ORDERED: Cefuroxime PO 500 MG TABLET PO SCH (18:00)
[2017-02-06] MEDS: Cefuroxime PO 250 MG TABLET PO SCH ×2 (18:37)
[2017-02-06] MEDS: MOM Conc 10 ML UD.LIQ PO SCH (21:44)
[2017-02-07] MEDS: Cefuroxime PO 250 MG TABLET PO SCH ×2 (06:05→20:40)
[2017-02-07] MEDS: Ascorbic Acid 500 MG TABLET PO SCH (06:06)
[2017-02-07] MEDS: *HR* OxyCODONE ER (12 HR) 10 MG TABLET PO SCH ×2 (06:06→20:39)
[2017-02-07] MEDS: *HR* Enoxaparin 40 MG/0.4 ML SYRINGE SQ SCH (06:09)
[2017-02-07] MEDS: *HR* Morphine 2 MG/ML SYRINGE IVP PRN (07:10)
[2017-02-07] MEDS: Famotidine 20 MG TABLET PO SCH ×2 (08:56→20:41)
[2017-02-07] MEDS: Baclofen 10 MG TABLET PO SCH ×3 (08:56→20:40)
[2017-02-07] MEDS: Azithromycin 250 MG TABLET PO SCH (08:56)
[2017-02-07] MEDS: Lactobacillus 1 EACH CAP.SPRINK PO SCH ×2 (08:56→20:39)
[2017-02-07] MEDS: Lisinopril 20 MG TABLET PO SCH ×2 (08:57→12:51)
[2017-02-07] MEDS: Ipratropium/Albuterol Neb 3 ML IH PRN ×2 (10:26→21:27)
[2017-02-07] MEDS: Budesonide/Formoterol 80/4.5 MDI IH SCH ×2 (10:26→21:27)
[2017-02-08] MEDS: *HR* OxyCODONE ER (12 HR) 10 MG TABLET PO SCH ×2 (06:37→17:12)
[2017-02-08] MEDS: Ascorbic Acid 500 MG TABLET PO SCH (06:37)
[2017-02-08] MEDS: *HR* Enoxaparin 40 MG/0.4 ML SYRINGE SQ SCH (06:38)
[2017-02-08] MEDS: *HR* Morphine 2 MG/ML SYRINGE IVP PRN ×2 (07:49→18:30)
[2017-02-08] MEDS: Baclofen 10 MG TABLET PO SCH ×3 (07:50→20:55)
[2017-02-08] MEDS: Lactobacillus 1 EACH CAP.SPRINK PO SCH (07:50)
[2017-02-08] MEDS: Azithromycin 250 MG TABLET PO SCH (07:50)
[2017-02-08] MEDS: Lisinopril 20 MG TABLET PO SCH (07:50)
[2017-02-08] MEDS: Famotidine 20 MG TABLET PO SCH ×2 (07:52→20:55)
[2017-02-08] MEDS: Ipratropium/Albuterol Neb 3 ML IH PRN ×2 (10:48→22:12)
[2017-02-08] MEDS: Budesonide/Formoterol 80/4.5 MDI IH SCH ×2 (10:49→22:12)
--- NOTE | 2017-02-08 13:02 | Internal Med Progress Note ---
Date of Encounter: 02/08/17 Time of Encounter: 12:50 - Assessment and plan (1) Pelvic fracture Current Visit: No Status: Acute Assessment and plan: February 04. Continue scheduled OxyContin and other prn medications February 06. Continue analgesics and therapy. Qualifiers: Encounter type: initial encounter Pelvic bone location: multiple parts Fracture type: closed Fracture alignment: with stable disruption of pelvic ring Qualified Code(s): S32.810A - Multiple fractures of pelvis with stable disruption of pelvic ring, initial encounter for closed fracture (2) Hypertension Current Visit: No Status: Chronic Assessment and plan: February 04. Continue Zestril and metoprolol. Qualifiers: Hypertension type: essential hypertension Qualified Code(s): I10 - Essential (primary) hypertension (3) Hyponatremia Current Visit: No Status: Acute Assessment and plan: February 04. Remain off HCTZ and monitor labs. February 06. Improved. Continue present regimen (4) Anemia Current Visit: No Status: Acute Assessment and plan: February 04. Anemia testing showed iron 16, transferrin saturation 7%, ferritin 169 , B12 526, and folate 14.7. Continue ferrous sulfate with vitamin C. February 06. Hemoglobin slightly improved to 10.0 on 02/05/2017. Continue present regimen Qualifiers: Anemia type: unspecified type Qualified Code(s): D64.9 - Anemia, unspecified (5) Pneumonia Current Visit: No Status: Acute Assessment and plan: February 04. Continue Rocephin, Zithromax, and lactobacillus February 08. Clinically resolved. We will discontinue antibiotics, lactobacillus , and Robitussin Qualifiers: Pneumonia type: due to unspecified organism Laterality: right Lung location: lower lobe of lung Qualified Code(s): J18.1 - Lobar pneumonia, unspecified organism - Subjective Interval history: February 04. She was hospitalized in acute care January 31- after presenting with a pelvic fracture. She had therapy intervention and progressed satisfactorily but it was felt she would benefit from swing bed stay for ongoing therapy. Hydrochlorothiazide was held because of hyponatremia. Blood pressure control remains satisfactory. Chest CT showed right lower lobe infiltrate and she was placed on antibiotics which were continued into swing bed. She has no new complaints today except ongoing nausea that is been present since admission to acute care. February 06. She has no new complaints. She vocalizes frustration for significant delay in obtaining her requested pain medication earlier today. February 08. She has no new complaints and feels better. - Constitutional Vitals: Temp Pulse Resp BP Pulse Ox 98.4 F 64 14 118/68 95 02/08/17 06:29 02/08/17 06:29 02/08/17 10:55 02/08/17 06:29 02/08/17 10:55 Exam: She is resting comfortably in bed. Her lungs are clear. Her affect is bright and cheerful. I reviewed her medications and lab results. Internal Medicine: Result - Labs CBC & Chem 7: 02/05/17 04:54 02/05/17 04:54 - ABG Interpretation ABG results: PT/INR, D-dimer PT 12.4 Seconds (9.4-12.1) H 02/03/17 04:50 - VTE Documentation of Mechanical Device: Graduated compression elastic hosiery Consult Discharge Plan - Plan Referrals: Xavier Rivera, PERMIT SPECIALIST [Primary Care Provider] - 1 week
[2017-02-08] MEDS: MOM Conc 10 ML UD.LIQ PO SCH (20:53)
[2017-02-09] MEDS: *HR* OxyCODONE ER (12 HR) 10 MG TABLET PO SCH ×2 (06:07→17:55)
[2017-02-09] MEDS: *HR* Enoxaparin 40 MG/0.4 ML SYRINGE SQ SCH (06:07)
[2017-02-09] MEDS: Ascorbic Acid 500 MG TABLET PO SCH (06:07)
[2017-02-09] MEDS: Cefuroxime PO 250 MG TABLET PO SCH (08:22)
[2017-02-09] MEDS: Baclofen 10 MG TABLET PO SCH ×3 (08:38→22:25)
[2017-02-09] MEDS: Famotidine 20 MG TABLET PO SCH ×2 (08:38→22:25)
[2017-02-09] MEDS: Lisinopril 20 MG TABLET PO SCH (08:39)
[2017-02-09] MEDS: Ipratropium/Albuterol Neb 3 ML IH PRN ×3 (09:47→22:10)
[2017-02-09] MEDS: Budesonide/Formoterol 80/4.5 MDI IH SCH ×2 (09:47→22:10)
[2017-02-10] MEDS: Ascorbic Acid 500 MG TABLET PO SCH (06:33)
[2017-02-10] MEDS: *HR* OxyCODONE ER (12 HR) 10 MG TABLET PO SCH ×2 (06:33→18:17)
[2017-02-10] MEDS: *HR* Enoxaparin 40 MG/0.4 ML SYRINGE SQ SCH (06:34)
[2017-02-10] MEDS: Ondansetron ODT 4 MG TAB.RAPDIS SL PRN (09:44)
[2017-02-10] MEDS: Baclofen 10 MG TABLET PO SCH ×3 (09:44→20:14)
[2017-02-10] MEDS: Lisinopril 20 MG TABLET PO SCH (09:44)
[2017-02-10] MEDS: Famotidine 20 MG TABLET PO SCH ×2 (09:45→20:13)
[2017-02-10] MEDS: Ipratropium/Albuterol Neb 3 ML IH PRN ×3 (10:44→21:30)
[2017-02-10] MEDS: Budesonide/Formoterol 80/4.5 MDI IH SCH ×2 (10:45→21:30)
[2017-02-10] MEDS: MOM Conc 10 ML UD.LIQ PO SCH (20:15)
[2017-02-11] MEDS: *HR* Enoxaparin 40 MG/0.4 ML SYRINGE SQ SCH (06:12)
[2017-02-11] MEDS: *HR* OxyCODONE ER (12 HR) 10 MG TABLET PO SCH (06:13)
[2017-02-11] MEDS: Ascorbic Acid 500 MG TABLET PO SCH (06:13)
[2017-02-11 07:22] VITALS: BP 151/65
[2017-02-11] MEDS: Ondansetron ODT 4 MG TAB.RAPDIS SL PRN (07:24)
[2017-02-11] MEDS: Lisinopril 20 MG TABLET PO SCH (09:09)
[2017-02-11] MEDS: Famotidine 20 MG TABLET PO SCH (09:09)
[2017-02-11] MEDS: Baclofen 10 MG TABLET PO SCH (09:09)
--- NOTE | 2017-02-11 09:58 | Discharge Summary ---
Date of Encounter: 02/11/17 Time of Encounter: 09:40 - Discharge Diagnosis (1) Pelvic fracture Priority: Primary Status: Acute Qualifiers: Encounter type: initial encounter Pelvic bone location: multiple parts Fracture type: closed Fracture alignment: with stable disruption of pelvic ring Qualified Code(s): S32.810A - Multiple fractures of pelvis with stable disruption of pelvic ring, initial encounter for closed fracture (2) Hypertension Priority: Secondary Status: Chronic Qualifiers: Hypertension type: essential hypertension Qualified Code(s): I10 - Essential (primary) hypertension (3) Hyponatremia Priority: Secondary Status: Acute (4) Anemia Priority: Secondary Status: Acute Qualifiers: Anemia type: unspecified type Qualified Code(s): D64.9 - Anemia, unspecified (5) Pneumonia Priority: Secondary Status: Resolved Qualifiers: Pneumonia type: due to unspecified organism Laterality: right Lung location: lower lobe of lung Qualified Code(s): J18.1 - Lobar pneumonia, unspecified organism - Discharge Medications Prescriptions: OxyCODONE ER (12 HR) [OxyCONTIN] 20 mg PO Q12HR #14 tab.er.12h Ascorbic Acid [Vitamin C] 500 mg PO DAILY #30 tablet Ferrous Sulfate 325 mg PO DAILY #30 tablet Metoprolol XL (24 HR) Succ [Toprol XL] 25 mg PO DAILY #30 tab.er.24h Home Medications: Albuterol Sulfate [Proair Hfa] 2 puff IH QID PRN 12/07/15 [History] Alendronate Sodium [Fosamax] 70 mg PO QWEEK 12/07/15 [History] Baclofen [Lioresal] 10 mg PO TID 12/07/15 [History] Calcium Carbonate/Vitamin D2 [Oyster Shell Calcium-Vit D Tab] 1 each PO BID [History] Famotidine [Acid Control] 20 mg PO BID 12/07/15 [History] Fluticasone/Salmeterol [Advair 250-50 Diskus] 1 each IH BID 12/07/15 [History] Montelukast [Singulair] 10 mg PO DAILY 12/07/15 [History] TraMADol [Ultram] 50 mg PO TID 12/07/15 [History] Ascorbic Acid [Vitamin C] 500 mg PO DAILY #30 tablet 02/11/17 [Rx] Ferrous Sulfate 325 mg PO DAILY #30 tablet 02/11/17 [Rx] Lisinopril [Zestril] 10 mg PO DAILY #0 tablet 02/11/17 [Rx] Metoprolol XL (24 HR) Succ [Toprol XL] 25 mg PO DAILY #30 tab.er.24h 02/11/17 [ Rx] OxyCODONE ER (12 HR) [OxyCONTIN] 20 mg PO Q12HR #14 tab.er.12h 02/11/17 [Rx] Allergies/Adverse Reactions: Allergies No Known Allergies Allergy (Verified 01/31/17 08:55) Date of admission: 02/03/17 13:55 Primary care physician: Jair Rivera CNP Consults: 02/03/17 14:46 Consult to Occupational Therapy [CONS] Routine Comment: Evaluate, develop and implement POC Consult to Physical Therapy [CONS] Routine Comment: Evaluate, develop and implement POC 02/03/17 19:26 Consult to Human Resources Manager [CONS] Routine Reason for SW Consult: D/C planning - Patient Status Disposition: Home Health Service Functional capacity at discharge: uses cane/walker Overall status at discharge: patient is progressing back to baseline - Discharge Instructions Follow Up With: Xavier Rivera CNP [Primary Care Provider] - 1 week - Diet and Activity Activity: ambulate only with your walker, as per physical therapy Diet: advance to your usual diet Hospital course: Ms. Ruvalcaba is a 67 year old female who was hospitalized in acute care January 31- after presenting with a pelvic fracture. She had therapy intervention and progressed satisfactorily but it was felt she would benefit from swing bed stay for ongoing therapy. Hydrochlorothiazide was held because of hyponatremia. Blood pressure control remained satisfactory. Chest CT showed right lower lobe infiltrate and she was placed on antibiotics which were continued into swing bed. She continued to progress with therapy in swing bed. Her pelvic pain gradually lessened and she will be discharged home on reduced dose of OxyContin. Lisinopril dose was decreased. Hydrochlorothiazide remained discontinued. Metoprolol was continued and blood pressure remained satisfactory. She will remain on this regimen at home. Her sodium level angela to 132 by 02/05/2017. Anemia testing showed findings consistent with iron deficiency. She will continue ferrous sulfate with vitamin C at home. On February 11 she was stable for discharge home. She will follow with her PCP Jair Rivera CNP within 1 week. DME needs include bedside commode, frontwheel walker, and tub transfer bench. - Time Spent with Patient Total time spent providing and/or coordinating discharge services: - Constitutional Vitals: Temp Pulse Resp BP Pulse Ox 97.9 F 60 16 151/65 98 02/11/17 07:20 02/11/17 07:20 02/11/17 07:20 02/11/17 07:20 02/11/17 07:20 - VTE Documentation of Mechanical Device: Graduated compression elastic hosiery
[2017-02-11] MEDS: Budesonide/Formoterol 80/4.5 MDI IH SCH (10:04)
[2017-02-11] MEDS: Ipratropium/Albuterol Neb 3 ML IH PRN (10:05)
--- NOTE | 2017-02-11 10:05 | Physician Discharge Referral ---
Home Health/Hosp Referral Info Transfer to: Home Health Attending Provider: Alex Provider in Charge Post Discharge: PCP (Jair Rivera CNP) - Diagnosis (1) Pelvic fracture Priority: Primary Status: Acute (2) Hypertension Priority: Secondary Status: Chronic (3) Hyponatremia Priority: Secondary Status: Acute (4) Anemia Priority: Secondary Status: Acute (5) Pneumonia Priority: Secondary Status: Resolved - Respiratory Orders Smoking Cessation: Smoking cessation has been advised. For more information, call the [place] Tobacco Quit Line at 3-160-CUED-NOW. - Diet/Nutrition Diet/Nutrition Orders: Regular - Activity Activity Orders: Walker - Services Needed Following services are medically necessary services: Nursing, Home Health Aide, Physical Therapy, Occupational Therapy - Transfer Medications Prescriptions: OxyCODONE ER (12 HR) [OxyCONTIN] 20 mg PO Q12HR #14 tab.er.12h Ascorbic Acid [Vitamin C] 500 mg PO DAILY #30 tablet Ferrous Sulfate 325 mg PO DAILY #30 tablet Metoprolol XL (24 HR) Succ [Toprol XL] 25 mg PO DAILY #30 tab.er.24h Home Medications: Albuterol Sulfate [Proair Hfa] 2 puff IH QID PRN 12/07/15 [History] Alendronate Sodium [Fosamax] 70 mg PO QWEEK 12/07/15 [History] Baclofen [Lioresal] 10 mg PO TID 12/07/15 [History] Calcium Carbonate/Vitamin D2 [Oyster Shell Calcium-Vit D Tab] 1 each PO BID [History] Famotidine [Acid Control] 20 mg PO BID 12/07/15 [History] Fluticasone/Salmeterol [Advair 250-50 Diskus] 1 each IH BID 12/07/15 [History] Montelukast [Singulair] 10 mg PO DAILY 12/07/15 [History] TraMADol [Ultram] 50 mg PO TID 12/07/15 [History] Ascorbic Acid [Vitamin C] 500 mg PO DAILY #30 tablet 02/11/17 [Rx] Ferrous Sulfate 325 mg PO DAILY #30 tablet 02/11/17 [Rx] Lisinopril [Zestril] 10 mg PO DAILY #0 tablet 02/11/17 [Rx] Metoprolol XL (24 HR) Succ [Toprol XL] 25 mg PO DAILY #30 tab.er.24h 02/11/17 [ Rx] OxyCODONE ER (12 HR) [OxyCONTIN] 20 mg PO Q12HR #14 tab.er.12h 02/11/17 [Rx] Allergies/Adverse Reactions: Allergies No Known Allergies Allergy (Verified 01/31/17 08:55) Certification: Further, I certify that my clinical findings support that this patient is homebound (i.e. absences from home require considerable and taxing effort and are for medical reasons or jain services or infrequently or short duration when for other reasons) because: Homebound Reason: Leaving home requires considerable and taxing effort due to condition (Pelvic fracture with significant pain on ambulation) Attestation: My signature below is to certify that this patient is under my care and that I, or nurse practitioner, or a physician's assistant director of plant operations working with me, has a face-to -face encounter with this patient.
== END 2017-02-11 12:00 | disposition home health service (06) | DRG 559 ==
LOC: INPPIK 13:55
PROVIDERS: ADMIT Internal Medicine; ATTEND Internal Medicine

== ENCOUNTER 2022-02-18 14:11 | Inpatient (IN) ==
[2022-02-18 14:41] LABS: Basophils % 0.3 %; Eosinophils # 0.2 K/mcL (0.0-0.6); Eosinophils % 2.4 %; Hematocrit 18.3 % (35.3-44.9); Immature Granulocytes % 0.3 % (0-4); Lymphocytes # 1.8 K/mcL (0.6-4.6); Mean Corpuscular HGB Conc 25.7 g/dL (31.6-35.5); Mean Corpuscular Hemoglobin 17.3 pg (28.0-33.3); Mean Corpuscular Volume 67.5 fL (83.0-100.0); Mean Platelet Volume 8.9 fL (9.4-12.4); Monocytes % 16.1 %; Neutrophils # 3.4 K/mcL (1.6-8.9); Nucleated Red Blood Cells 0.8 /100 WBC (0); Platelet Count 492 K/mcL (140-400); Red Blood Count 2.71 M/mcL (3.82-4.97); Red Cell Distribution Width 25.2 % (11.5-14.5); Segmented Neutrophils % 52.9 %; White Blood Count 6.4 K/mcL (4.3-11.1)
[2022-02-18 14:48] LABS: Hemoglobin 4.7 g/dL (11.5-15.4)
[2022-02-18 14:49] LABS: Anisocytosis 2+ (Not Present); Hypochromasia Present (Not Present); INR 1.4; Macrocytosis Present (Not Present); Ovalocytes 1+ (Not Present); Platelet Estimate Increased (Normal); Prothrombin Time 15.3 Seconds (9.4-12.1); Target Cells 1+ (Not Present)
[2022-02-18 14:51] LABS: Activated Partial Thrombo Time 27.4 Seconds (26.0-36.0)
[2022-02-18 14:56] LABS: BUN/Creatinine Ratio 10 (6-26); Blood Urea Nitrogen 6 mg/dL (8-23); Calcium 8.1 mg/dL (8.6-10.3); Carbon Dioxide 26 mEq/L (23-29); Chloride 103 mEq/L (98-107); Glucose 105 mg/dL (70-105); Osmolality,Calculated 280 (280-300); Potassium 3.6 mEq/L (3.5-5.1); Sodium 136 mEq/L (136-145); eGFR For African Americans > 60 (> 60); eGFR For Non-African Americans > 60 (> 60)
[2022-02-18] MEDS ORDERED: Ondansetron 4 MG/2 ML VIAL IVP PRN (15:24)
[2022-02-18] MEDS ORDERED: Naloxone 0.4 MG/ML INJ IVP PRN (15:24)
[2022-02-18] MEDS ORDERED: Acetaminophen 325 MG TABLET PO PRN (15:24)
[2022-02-18] MEDS ORDERED: Ipratropium/Albuterol Neb 3 ML IH PRN (15:26)
[2022-02-18 16:28] LABS: % Iron Saturation 3 % (15-50); Iron 12 mcg/dL (50-170); Transferrin 261 mg/dL (203-362)
[2022-02-18 21:32] LABS: Folate > 22.3 ng/mL (3.0-16.0); Vitamin B12 561 pg/mL (250-1100)
[2022-02-19 05:11] LABS: Hematocrit 25.1 % (35.3-44.9); Hemoglobin 7.6 g/dL (11.5-15.4); Mean Corpuscular HGB Conc 30.3 g/dL (31.6-35.5); Mean Corpuscular Hemoglobin 22.6 pg (28.0-33.3); Mean Corpuscular Volume 74.5 fL (83.0-100.0); Mean Platelet Volume 9.6 fL (9.4-12.4); Platelet Count 386 K/mcL (140-400); Red Blood Count 3.37 M/mcL (3.82-4.97); White Blood Count 4.7 K/mcL (4.3-11.1)
[2022-02-19 05:35] LABS: BUN/Creatinine Ratio 7 (6-26); Blood Urea Nitrogen 4 mg/dL (8-23); Calcium 7.9 mg/dL (8.6-10.3); Carbon Dioxide 26 mEq/L (23-29); Chloride 104 mEq/L (98-107); Glucose 74 mg/dL (70-105); Magnesium 1.9 mg/dL (1.6-2.6); Osmolality,Calculated 280 (280-300); Potassium 3.5 mEq/L (3.5-5.1); Sodium 137 mEq/L (136-145); eGFR For African Americans > 60 (> 60); eGFR For Non-African Americans > 60 (> 60)
[2022-02-19] MEDS ORDERED: 0.9 % Sodium Chloride 250 ML ONE (10:24)
[2022-02-19] MEDS: Cholecalciferol (D-3) 1,000 UNIT (25MCG) TABLET PO SCH (10:40)
[2022-02-19] MEDS: Aspirin Enteric Coated 81 MG Tablet PO SCH (10:40)
[2022-02-19] MEDS: Budesonide/Formoterol 160/4.5 1 PUFF INH IH SCH ×2 (10:45→21:53)
[2022-02-19] MEDS: Magnesium Oxide 400 MG TABLET PO SCH (10:48)
[2022-02-19] MEDS ORDERED: Iron Sucrose Complex 200 MG in 0.9 % Sodium Chloride 100 ML IVPB ONE (15:43)
[2022-02-19] MEDS: *HR* HYDROcodone/Acet 5/325 mg TABLET PO PRN (16:59)
[2022-02-19] MEDS ORDERED: Potassium Chloride Elixir 20 MEQ/15 ML UDC PO ONE (21:16)
[2022-02-19] MEDS: Calcium Gluconate 1gm/50mL 1 GM/50 ML BAG IVPB SCH (23:20)
[2022-02-20] MEDS: Calcium Gluconate 1gm/50mL 1 GM/50 ML BAG IVPB SCH (00:15)
[2022-02-20] MEDS ORDERED: Calcium Gluconate 1gm/50mL 1 GM/50 ML BAG IVPB SCH (00:30)
[2022-02-20] MEDS: *HR* HYDROcodone/Acet 5/325 mg TABLET PO PRN (06:48)
[2022-02-20 07:34] VITALS: RESP 16
[2022-02-20 07:57] LABS: Hematocrit 32.9 % (35.3-44.9); Mean Corpuscular HGB Conc 30.4 g/dL (31.6-35.5); Mean Corpuscular Hemoglobin 23.5 pg (28.0-33.3); Mean Corpuscular Volume 77.2 fL (83.0-100.0); Mean Platelet Volume 9.4 fL (9.4-12.4); Platelet Count 368 K/mcL (140-400); Red Blood Count 4.26 M/mcL (3.82-4.97); Red Cell Distribution Width 27.8 % (11.5-14.5); White Blood Count 4.9 K/mcL (4.3-11.1)
[2022-02-20 08:38] LABS: BUN/Creatinine Ratio 4 (6-26); Blood Urea Nitrogen 2 mg/dL (8-23); Calcium 8.6 mg/dL (8.6-10.3); Carbon Dioxide 28 mEq/L (23-29); Chloride 104 mEq/L (98-107); Glucose 89 mg/dL (70-105); Magnesium 1.8 mg/dL (1.6-2.6); Osmolality,Calculated 282 (280-300); Potassium 3.6 mEq/L (3.5-5.1); Sodium 138 mEq/L (136-145); eGFR For African Americans > 60 (> 60); eGFR For Non-African Americans > 60 (> 60)
[2022-02-20] MEDS: Budesonide/Formoterol 160/4.5 1 PUFF INH IH SCH (09:07)
[2022-02-20] MEDS: Cholecalciferol (D-3) 1,000 UNIT (25MCG) TABLET PO SCH (10:35)
[2022-02-20] MEDS: Magnesium Oxide 400 MG TABLET PO SCH (10:35)
[2022-02-20] MEDS: Aspirin Enteric Coated 81 MG Tablet PO SCH (10:35)
[2022-02-20 11:17] VITALS: BP 142/68; PULSE 77; TEMP 98.5; O2SAT 95
[2022-02-23] MEDS ORDERED: NON-FORMULARY MEDICATION 1 EACH EACH (Alendronate Sodium 70 MG Tablet) PO SCH (15:26)
== END 2022-02-20 12:45 | disposition home or self-care (01) | DRG 812 ==
LOC: INPPIK 14:11 → EMEROOPIK 14:11 → INPPIK 16:25
PROVIDERS: ADMIT Registered Nurse Emergency; ATTEND Registered Nurse Emergency